=== PATIENT | female | born 1960 | race Caucasian/White ===

== ENCOUNTER 2018-07-19 14:12 | Outpatient (CLI) | payer OTHER ==
--- NOTE | 2018-07-19 15:17 | RAD ---
CHEST 2 VIEWS: INDICATION: History of spontaneous tension pneumothorax. COMPARISON: None. FINDINGS: There are bullous changes involving the right lung apex with scarring. There is a spiculated opacity within the right upper lobe which may be related to scarring or a nodule measuring approximately 2.4 cm. The left lung demonstrates emphysematous change but is clear. No definite pneumothorax is evid ent. No acute osseous abnormality is noted. IMPRESSION: 1. Severe emphysema. There are bullous changes involving the right upper lobe. There a suggested s piculated opacity within the right lung apex. Recommend further evaluation with CT of the thorax wit h IV contrast for additional characterization. This may be related to scar or malignancy. 2. No evidence of pneumothorax. 3. Midline sternotomy changes and cholecystectomy. POS: [facility]
== END 2018-07-19 14:13 | disposition home or self-care (01) ==
LOC: RAD 14:12
PROVIDERS: ATTEND Thoracic Surgery (Cardiothoracic Vascular Surgery)
DX: J93.0 Spontaneous tension pneumothorax (principal); J43.9 Emphysema, unspecified; Z90.49 Acquired absence of other specified parts of digestive tract; Z98.890 Other specified postprocedural states
CPT/HCPCS: 71046

== ENCOUNTER 2018-09-06 10:55 | Outpatient (CLI) | payer OTHER ==
[~2018-09-06 10:55] MED LIST: ISOVUE-370 76%-LOCM 1 ML ONE
--- NOTE | 2018-09-06 13:28 | CT ---
CHEST CT: Date: 09/06/18 HISTORY: Abnormal chest x ray FINDINGS: There is a band-like area of scar in the right upper lobe corresponding to the recent mammographic fi ndings with central calcifications. There are severe emphysematous changes. No pneumothorax. No effusion. Thyroid is unremarkable. No mediastinal adenopathy. No axillary adenopa thy. The aortic contour is nonaneurysmal. Limited evaluation of the upper abdomen demonstrates reservoir effect of common bile duct which is di lated. Adrenal glands unremarkable. No thoracic spine compression fracture. No displaced rib fracture. IMPRESSION: Corresponding to the recent radiographic findings is what appears to be a thick band of scar with shiva e central calcifications. Given the severe emphysematous changes, may benefit from being in a screeni ng lung cancer CT program. POS: [facility]
== END 2018-09-06 10:56 | disposition home or self-care (01) ==
LOC: BICCT 10:55
PROVIDERS: ATTEND Thoracic Surgery (Cardiothoracic Vascular Surgery)
DX: J93.0 Spontaneous tension pneumothorax (principal); J43.9 Emphysema, unspecified; J98.4 Other disorders of lung
CPT/HCPCS: 71260; Q9966